=== PATIENT | male | born 1970 | race Caucasian/White ===

== ENCOUNTER 2017-06-20 14:16 | Emergency (ER) | payer OTHER ==
--- NOTE | ~2017-06-20 | ER ---
PATIENT'S NAME: FABRIZIO WILLAMS [facility] AGE: 47 Y [address] ROOM: [place] [id number] LOCATION: [facility] ADMIT DATE: 06/20/2017 ER/Outpatient Report DISCHARGE DATE: 06/20/2017 FAMILY PHYSICIAN: PHYSICIAN, NO ATTENDING PHYSICIAN: Dionna Foreman Time of Arrival: 1416 hours. Time of Evaluation: 1420 hours. CHIEF COMPLAINT: Flank pain/abdominal pain. HISTORY OF PRESENT ILLNESS: This is a 47-year-old male who presents to the ER, who states he woke up today around 5 o'clock this morning with some right lower quadrant abdominal pain. The patient states that he has never had any pain like this in the past, it makes him feel nauseated, but he has had no vomiting. He does not believe he has been running any fevers. He denies any troubles with urination. His last bowel movement was today and was normal. He describes this pain as a constant dull ache that does not radiate anywhere. The patient states he presented to [facility] and they told him he should come to the emergency room to be evaluated. ALLERGIES: ALEVE, WHICH MAKES HIM FEEL DIZZY. MEDICATIONS: None. PAST MEDICAL HISTORY: Obesity. SOCIAL HISTORY: He quit smoking 10 years ago. Denies any drug or alcohol use. REVIEW OF SYSTEMS: All systems reviewed and were negative with the exception of those discussed in the HPI. PHYSICAL EXAMINATION: VITAL SIGNS: Height 6 feet stated, weight 151.3 kg taken, blood pressure is 195/96, pulse 68, respirations 16, temperature 98.1 degrees tympanically, and saturations 99% on room air. Vladimir Coma Score is 15. GENERAL: Alert, obese male, in mild distress. HEENT: Head: Normocephalic. Eyes: Pupils are equal and reactive to light. PATIENT'S NAME: FABRIZIO WILLAMS [facility] AGE: 47 Y [address] ROOM: [place] [id number] LOCATION: [facility] ADMIT DATE: 06/20/2017 ER/Outpatient Report DISCHARGE DATE: 06/20/2017 FAMILY PHYSICIAN: PHYSICIAN, NO ATTENDING PHYSICIAN: Dionna Foreman Does display moist mucous membranes. LUNGS: Clear to auscultation bilaterally. HEART: Regular rate and rhythm. ABDOMEN: Obese. He has some tenderness in the right lower quadrant with palpation. No guarding. No rebound tenderness. He has hypoactive bowel sounds. No masses were palpated. EXTREMITIES: No clubbing, cyanosis, or edema. Has full range of motion of all limbs. LABORATORY DATA AND X-RAYS: CBC: White count is 14.8, hemoglobin is 17.5, and ANC is 13.3. CMS: Creatinine is 1.7, GFR is 47, glucose is 125, amylase is 49, and lipase is 91. Urinalysis: Leukocytes negative and nitrites negative. UA micro: White blood cells negative and red blood cells 0 to 2. 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 IMPRESSION: 1. A 3 mm right-sided kidney stone. 2. CT finding of hiatal hernia. ASSESSMENT AND PLAN: We did start an IV here in the emergency room. We did give him a liter of IV fluids and fentanyl for his pain and Zofran for his nausea. We also gave him 15 mg of Toradol IV. The patient's pain has improved, he rested comfortably his entire stay, so we will dismiss him to home with prescriptions for Percocet and Flomax to use as directed. We would like him to strain his urine. He may alternate his pain medication as needed with ibuprofen and he needs to follow up with his primary care physician for followup care or return here to the emergency room if his symptoms worsen. The patient and patient's understand and agree with care. MAGALIS MOODY PA-C FOR MD JENNIFER MCKINLEY/doreen /[id number] d: [birth year]/178 t: 06/28/172040, OUTPATIENT REPORT
[2017-06-20 14:43] LABS: BILIRUBIN URINE NEGATIVE (NEGATIVE); BLOOD URINE 25 /UL (NEGATIVE); COLOR URINE YELLOW (YELLOW); GLUCOSE URINE NEGATIVE (NEGATIVE); KETONE URINE NEGATIVE (NEGATIVE); LEUKOCYTES URINE NEGATIVE /UL (NEGATIVE); NITRITE URINE NEGATIVE (NEGATIVE); PROTEIN URINE 500 mg/dL (NEGATIVE); SPEC GRAVITY URINE 1.025 (1.003-1.035); TURBIDITY URINE 1+ (CLEAR); UROBILINOGEN URINE NORMAL (NORMAL)
[2017-06-20 14:49] LABS: EPITHELIAL URINE 0-2 #/HPF (NEGATIVE); RBC URINE 0-2 #/HPF (NEGATIVE); WBC URINE NEGATIVE #/HPF (NEGATIVE)
[2017-06-20 14:50] LABS: AMORPHOUS URINE 1+ (NEGATIVE); BACTERIA URINE NEGATIVE (NEGATIVE); MUCUS URINE 1+ (NEGATIVE)
[2017-06-20 14:54] LABS: BASOPHIL % 0.1 %; EOSINOPHIL % 0.1 %; HEMOGLOBIN 17.5 g/dL (12.0-17.0); IMMATURE GRANULOCYTE # 0.1 K/uL (0.0-0.3); IMMATURE GRANULOCYTE % 0.4 %; LYMPHOCYTE % 6.9 %; MCH 29.7 pg (27.0-34.0); MCHC 33.7 gm/dL (32.0-36.5); MCV 88.3 fl (83.0-98.0); MONOCYTE # 0.5 K/uL (0.0-1.0); MPV 10.5 fl (9.4-12.4); NEUTROPHIL # (ANC) 13.3 K/uL (1.4-9.0); NEUTROPHIL % 89.5 %; NRBC % 0 /100WBC (0-0.00); PLATELET COUNT 286 K/uL (150-450); RBC 5.89 M/uL (4.00-6.00); RDW-CV 12.9 % (11.9-14.6); WBC 14.8 K/uL (4.0-11.0)
[2017-06-20 15:10] LABS: ALBUMIN 4.1 gm/dL (3.5-5.0); ANION GAP 13.1 (10.0-19.0); CALCIUM 9.2 mg/dL (8.5-10.5); CREATININE 1.7 mg/dL (0.6-1.3); POTASSIUM 4.1 mMol/L (3.7-5.1); TOTAL PROTEIN 8.4 g/dL (6.0-8.4)
== END 2017-06-20 16:44 | disposition disaster alternative care site (69) ==
LOC: GMED 14:16
PROVIDERS: Physician Assistant Medical
DX: N13.2 Hydronephrosis with renal and ureteral calculous obstruction (principal); K44.9 Diaphragmatic hernia without obstruction or gangrene; E66.9 Obesity, unspecified; Z88.8 Allergy status to other drugs, medicaments and biological substances; Z87.891 Personal history of nicotine dependence
CPT/HCPCS: J1885; J2405; J3010; J7030